=== PATIENT | male | born 2000 | race Caucasian/White ===

== ENCOUNTER 2020-05-28 10:11 | Outpatient (CLI) | payer OTHER | END 2020-05-28 10:14 | disposition home or self-care (01) | LOC: SONOGRAMA 10:11 | PROVIDERS: ATTEND Pathology Anatomic Pathology & Clinical Pathology | DX: E04.1 Nontoxic single thyroid nodule (principal) ==

== ENCOUNTER 2020-07-14 08:44 | Outpatient (CLI) | payer OTHER | END 2020-07-14 09:00 | disposition home or self-care (01) | LOC: RAD 08:44 | PROVIDERS: ATTEND Internal Medicine Endocrinology, Diabetes & Metabolism | DX: E04.2 Nontoxic multinodular goiter (principal) ==

== ENCOUNTER 2022-12-21 07:38 | Outpatient (CLI) | payer BC | END 2022-12-21 07:41 | disposition home or self-care (01) | LOC: SONOGRAMA 07:38 | PROVIDERS: ATTEND Internal Medicine Endocrinology, Diabetes & Metabolism | DX: E04.1 Nontoxic single thyroid nodule (principal) ==

== ENCOUNTER 2024-12-25 09:21 | Emergency (ER) | payer BC ==
[~2024-12-25] VITALS: Ht 172.7 cm; Wt 78.5 kg
[2024-12-25 09:29] VITALS: BP 140/80; O2SAT 100
[2024-12-25] MEDS ORDERED: TOPROL XL100 M1 PO (09:29)
[2024-12-25] MEDS ORDERED: BACITRACIN-NEOMYCIN-POLYMYXIN 0.9 GM PACKET TOP STA (10:12)
== END 2024-12-25 13:24 | disposition home or self-care (01) ==
LOC: ER 09:21
DX: S92.911A Unspecified fracture of right toe(s), initial encounter for closed fracture (principal); S91.121A Laceration with foreign body of right great toe without damage to nail, initial encounter; W22.09XA Striking against other stationary object, initial encounter; Y93.89 Activity, other specified; Y92.89 Other specified places as the place of occurrence of the external cause